=== PATIENT | male | born 1950 | race Caucasian/White ===

== ENCOUNTER → 2019-01-11 | Outpatient (CLI) | payer MEDICARE, OTHER ==
[~2019-01-11] MED LIST: AZITHROMYCIN250 MG PO; IPRATROPIU0.2 MG/1 M IH; PROAIR HFA8.5 GM INH; PROMETHAZINE-C118 M1 ORAL
--- NOTE | 2019-01-11 15:41 | Diagnostic Imaging Report ---
Indications: Dizziness, vertigo, headache Technique: Spiral acquisitions obtained through the brain. Angled axial and coronal 5 x 5 mm slices were reconstructed. Total dose length product 1509.15 mGycm. CTDI vol(s) 70.38 mGy. Dose reduction achieved using automated exposure control Comparison: None. Findings: There is age-related enlargement of the ventricles and extra axial CSF spaces. There is minimal periventricular deep white matter low-attenuation consistent with chronic microvascular ischemic change. No acute intracranial hemorrhage or edema, mass effect, nor midline shift. The visualized orbits and sinuses are unremarkable. There is ethmoid sinus disease on the right. The mastoids are clear. Impression: Chronic and age-related changes Negative for acute intracranial bleed or mass effect The CT scanner at [facility] is accredited by the [employer] and the scans are performed using protocols designed to limit radiation exposure to as low as reasonably achievable to attain images of sufficient resolution adequate for diagnostic evaluation.
== END | disposition home or self-care (01) ==
LOC: CAT 10:20
DX: R42 Dizziness and giddiness (principal); R51 Headache
CPT/HCPCS: 70450